=== PATIENT | male | born 1965 | race African-American/Black ===

== ENCOUNTER 2023-08-18 17:17 | Emergency (ER) | payer OTHER ==
--- NOTE | 2023-08-18 18:04 | RAD REPORT ---
EXAM DESCRIPTION: CT - CTFB CLINICAL HISTORY: hit by baseball COMPARISON: No comparisons TECHNIQUE: Axial 2 mm thick images of the face were obtained with sagittal and coronal reconstructio n images. All CT scans are performed using dose optimization technique as appropriate and may include automated exposure control or mA/KV adjustment according to patient size. FINDINGS: No acute facial bone fracture is seen.The mandible is intact. The globes and orbital contents are grossly unremarkable.Mucous retention cyst in left maxillary sinu s. Right cheek swelling. IMPRESSION: Negative for facial bone fracture.
[2023-08-18] MEDS ORDERED: LIDOCAINE 1% MPF 5 ML VIAL ONE (18:16)
--- NOTE | 2023-08-18 19:57 | EDPHYS ---
Physician Documentation [facility] Name: Blake Barba Age: 58 yrs Sex: Male : 1965 Arrival Date: 08/18/2023 Time: 17:17 Bed 9 Private MD: ED Physician Lior Boateng HPI: 08/17 17:30 This 58 yrs old Black Male presents to ER via Law [employer] with complaints of cp Laceration. 17:30 The patient or guardian reports injury, a laceration, swelling, tenderness. cp 17:30 The complaints affect the right cheek. Context of injury: resulted from a direct blow, cp from baseball that bounced off ground. Onset: The symptoms/episode began/occurred today. Associated signs and symptoms: Loss of consciousness: This patient did not experience any loss of consciousness. Pertinent negatives: double vision, headache, neck pain, vomiting. Historical: - Allergies: 17:21 No Known Allergies; hb - Home Meds: 17:21 unknown hypertension med [Active]; hb - PMHx: 17:21 Hypertension; hb - PSHx: 17:21 Appendectomy; hb - Immunization history:: Last tetanus immunization: < 10 years ago. - Infectious Disease History:: Denies. - Social history:: Smoking status: Patient denies any tobacco usage or history of. ROS: 17:35 Skin: Positive for laceration(s), of the right cheek, cp 17:35 Eyes: Negative for injury, pain, redness, and discharge, cp 17:35 Constitutional: Negative for chills, fever, 17:35 Neck: Negative for pain with movement, pain at rest, stiffness, 17:35 Cardiovascular: Negative for chest pain, 17:35 Respiratory: Negative for cough, shortness of breath, wheezing, 17:35 Abdomen/GI: Negative for abdominal pain, diarrhea, constipation, 17:35 Neuro: Negative for altered mental status, dizziness, headache, loss of consciousness, numbness, weakness, 17:35 All other systems are negative, Exam: 17:40 Constitutional: The patient appears in no acute distress, alert, awake, cp non-diaphoretic, well developed, well nourished, 17:40 Head/face: Noted is a laceration(s), that is linear, of the right cheek, swelling, cp that is mild, of the right cheek, Sinus tenderness, that is mild, is located over the right maxillary sinus, 17:40 Eyes: Pupils: equal, round, and reactive to light and accomodation, Extraocular movements: intact throughout, Conjunctiva: normal, no exudate, no injection, Sclera: no appreciated abnormality, Lids and lashes: appear normal, bilaterally, 17:40 ENT: External ear(s): are unremarkable, Nose: is normal, Mouth: Lips: moist, Oral mucosa: pink and intact, moist, Posterior pharynx: is normal, airway is patent, no erythema, no exudate, 17:40 Neck: C-spine: vertebral tenderness, is not appreciated, crepitus, is not appreciated, ROM/movement: is normal, is supple, without pain, no range of motions limitations, no nuchal rigidity, 17:40 Chest/axilla: Inspection: normal, Palpation: is normal, no crepitus, no tenderness, 17:40 Cardiovascular: Rate: normal, Rhythm: regular, 17:40 Respiratory: the patient does not display signs of respiratory distress, Respirations: normal, no use of accessory muscles, no retractions, labored breathing, is not present, Breath sounds: are clear throughout, no decreased breath sounds, no stridor, no wheezing, 17:40 Abdomen/GI: Inspection: abdomen appears normal, Palpation: abdomen is soft and non-tender, in all quadrants, 17:40 Back: pain, is absent, ROM is normal, 17:40 Neuro: Orientation: to person, place \T\ time. Mentation: is normal, Motor: moves all fours, strength is normal, Sensation: is normal, Vital Signs: 17:19 BP 153 / ???; Pulse 98; Resp 60; Temp 97.8(TE); Pulse Ox 100% on R/A; Weight 63.5 kg; hb Height 5 ft. 9 in. ; Pain 6/10; 19:14 BP 141 / 93; Pulse 60; Resp 16; Temp 97.8; Pulse Ox 100% ; Pain 4/10; bm8 20:19 BP 156 / 88; Pulse 56; Resp 16; Pulse Ox 100% on R/A; km8 17:19 Body Mass Index 20.67 (63.50 kg, 175.26 cm) hb 17:19 Pain Scale: Adult hb 19:14 Pain Scale: Adult bm8 Jonny Coma Score: 17:30 Eye Response: spontaneous(4). Motor Response: obeys commands(6). Verbal Response: cp oriented(5). Total: 15. Laceration: 20:00 Wound Repair of 3cm ( 1.2in ) subcutaneous laceration to right cheek. Linear shaped.. cp Minimal bleeding noted.. Distal neuro/vascular/tendon intact. Anesthesia: Wound infiltrated with 5 mls of 1% lidocaine. Wound prep: Simple cleansing by me. Skin closed with 4 5-0 Prolene using interrupted sutures and sterile technique. Dressed with Bacitracin. Patient tolerated well. MDM: 17:18 Patient medically screened. cp 19:56 Differential diagnosis: Contusion of face, Hematoma on face, Laceration of face, cp Concussion without LOC. 19:56 Data reviewed: vital signs, nurses notes, radiologic studies, CT scan, and as a result, cp I will discharge patient. I considered the following discharge prescriptions or medication management in the emergency department Medications were administered in the Emergency Department. See MAR. Counseling: I had a detailed discussion with the patient and/or guardian regarding the historical points, exam findings, and any diagnostic results supporting the discharge/admit diagnosis, radiology results, the need for outpatient follow up, a family practitioner, to return to the emergency department if symptoms worsen or persist or if there are any questions or concerns that arise at home. Response to treatment: the patient's symptoms have markedly improved after treatment, and as a result, I will discharge patient. 08/17 17:28 Order name: CT Facial Bones W/O Con; Complete Time: 18:17 cp 08/17 18:17 Interpretation: Report reviewed. cp 08/17 18:09 Order name: Dressing - Wound; Complete Time: 18:17 cp 08/17 18:09 Order name: Gloves, Sterile; Complete Time: 18:17 cp 08/17 18:09 Order name: Setup Suture Tray; Complete Time: 18:17 cp 08/17 19:50 Order name: Wound dressing; Complete Time: 20:20 cp Administered Medications: 19:34 Drug: Lidocaine Infiltration (1 %) 5 ml 5 ml Infiltration once; to bedside {Note: bm8 administered by provider.} Volume: 5 ml; Route: Infiltration; Disposition Summary: 08/18/23 19:57 Discharge Ordered Notes: Location: Home cp Problem: new cp Symptoms: have improved cp Condition: Stable cp Diagnosis - Facial Laceration/ Laceration without foreign body of cheek and temporomandibular cp area - right - Contusion of unspecified part of head, initial encounter cp Followup: cp - With: Private Physician - When: 1 week - Reason: Staple/Suture removal Discharge Instructions: - Discharge Summary Sheet cp - Facial or Scalp Contusion cp - Sutured Wound Care cp Forms: - Medication Reconciliation Form cp - Thank You Letter cp - Antibiotic Education cp - Prescription Opioid Use cp - Patient Portal Instructions cp - Leadership Thank You Letter cp Prescriptions: - Cephalexin 500 mg Oral Capsule - take 1 capsule ORAL route every 8 hours for 10 days; 30 capsule; Refills: 0, cp Product Selection Permitted Signatures: Dispatcher [employer] EDMS Lior Pena PA PA cp Jacqueline Catherine, RN RN hb Dg Swanson RN RN bm8 Corrections: (The following items were deleted from the chart) 17:22 17:21 Home Meds: Hypertension; hb hb
--- NOTE | 2023-08-18 19:57 | ER ---
Nurse's Notes [facility] Name: Blake Barba Age: 58 yrs Sex: Male : 1965 Arrival Date: 08/18/2023 Time: 17:17 Bed 9 Private MD: Diagnosis: Facial Laceration/ Laceration without foreign body of cheek and temporomandibular area-right;Contusion of unspecified part of head, initial encounter Presentation: 08/17 17:19 Chief complaint: Laceration to right cheek, reports baseball bounced up and hit face. hb Denies other injuries. Bleeding controlled. Coronavirus screen: At this time, the client does not indicate any symptoms associated with coronavirus-19. Ebola Screen: No symptoms or risks identified at this time. Complicating Factors: There are no complicating factors for this patient. Initial Sepsis Screen: Does the patient meet any 2 criteria? No. Patient's initial sepsis screen is negative. Does the patient have a suspected source of infection? No. Patient's initial sepsis screen is negative. Risk Assessment: Do you want to hurt yourself or someone else? Patient reports no desire to harm self or others. Onset of symptoms was August 18, 2023. 17:19 Method Of Arrival: [employer] Enforcement: [place] [employer] hb 17:19 Acuity: RAKAN 4 hb 17:23 Transition of care: TDC. hb 17:24 Note TDC officers at bedside, pt remains restrained. Care prior to arrival:. hb Triage Assessment: 17:21 General: Appears in no apparent distress. Behavior is calm, cooperative. Pain: Pain hb currently is 6 out of 10 on a pain scale. Neuro: Level of Consciousness is awake, alert, obeys commands, Oriented to person, place, time, situation. Injury Description: Laceration sustained to right cheek is 2.6 to 7.5 cm long, was sustained 2-4 hours ago. is bleeding a small amount a dressing was applied. Historical: - Allergies: 17:21 No Known Allergies; hb - Home Meds: 17:21 unknown hypertension med [Active]; hb - PMHx: 17:21 Hypertension; hb - PSHx: 17:21 Appendectomy; hb - Immunization history:: Last tetanus immunization: < 10 years ago. - Infectious Disease History:: Denies. - Social history:: Smoking status: Patient denies any tobacco usage or history of. Screenin:32 [facility] ED Fall Risk Assessment (Adult) History of falling in the last 3 months, tl4 including since admission No falls in past 3 months (0 pts) Confusion or Disorientation No (0 pts) Intoxicated or Sedated No (0 pts) Impaired Gait No (0 pts) Mobility Assist Device Used No (0 pt) Altered Elimination No (0 pt) Score/Fall Risk Level 0 - 2 = Low Risk Oriented to surroundings, Maintained a safe environment, Educated pt \T\ family on fall prevention, incl call for assistance when getting out of bed, Assessed \T\ reinforced patient's understanding of fall precautions, Hourly rounding (assess needs \T\ fall precautionary measures) done, Used ambulatory aids as needed (educated on \T\ assisted with), Used gait belt as appropriate. Abuse screen: Denies threats or abuse. Denies injuries from another. Nutritional screening: No deficits noted. Tuberculosis screening: No symptoms or risk factors identified. Assessment: 17:30 General: Appears in no apparent distress. Behavior is calm, cooperative. Pain: tl4 Complains of pain in face. Neuro: Level of Consciousness is awake, alert, obeys commands, Oriented to person, place, time, situation, Moves all extremities. Gait is steady, Speech is normal. Cardiovascular: Capillary refill < 3 seconds Patient's skin is warm and dry. Respiratory: Airway is patent Respiratory effort is even, unlabored, Respiratory pattern is regular, symmetrical, Breath sounds are clear bilaterally. GI: No deficits noted. No signs and/or symptoms were reported involving the gastrointestinal system. : No deficits noted. No signs and/or symptoms were reported regarding the genitourinary system. EENT: No deficits noted. No signs and/or symptoms were reported regarding the EENT system. Derm: No deficits noted. No signs and/or symptoms reported regarding the dermatologic system. Musculoskeletal: laceration to right cheek. Injury Description: Laceration sustained to right cheek is clean, not bleeding. 18:49 Reassessment: No changes from previously documented assessment. Patient and/or family tl4 updated on plan of care and expected duration. Pain level reassessed. Patient is alert, oriented x 3, equal unlabored respirations, skin warm/dry/pink. 19:14 Reassessment: Patient appears in no apparent distress at this time. Patient and/or bm8 family updated on plan of care and expected duration. Pain level reassessed. Patient is alert, oriented x 3, equal unlabored respirations, skin warm/dry/pink. Injury Description: Laceration sustained to right cheek is clean, 2.6 to 7.5 cm long, not bleeding. 20:19 Reassessment: Patient appears in no apparent distress at this time. No changes from km8 previously documented assessment. Patient and/or family updated on plan of care and expected duration. Pain level reassessed. Patient is alert, oriented x 3, equal unlabored respirations, skin warm/dry/pink. band aid applied over sutures. Vital Signs: 17:19 BP 153 / ???; Pulse 98; Resp 60; Temp 97.8(TE); Pulse Ox 100% on R/A; Weight 63.5 kg; hb Height 5 ft. 9 in. ; Pain 6/10; 19:14 BP 141 / 93; Pulse 60; Resp 16; Temp 97.8; Pulse Ox 100% ; Pain 4/10; bm8 20:19 BP 156 / 88; Pulse 56; Resp 16; Pulse Ox 100% on R/A; km8 17:19 Body Mass Index 20.67 (63.50 kg, 175.26 cm) hb 17:19 Pain Scale: Adult hb 19:14 Pain Scale: Adult bm8 Jonny Coma Score: 17:30 Eye Response: spontaneous(4). Motor Response: obeys commands(6). Verbal Response: cp oriented(5). Total: 15. ED Course: 17:18 Patient arrived in ED. hb 17:18 Brian Jiménez, RN is Primary Nurse. tl4 17:18 Lior Pena PA is PHCP. cp 17:18 Lior Boateng MD is Attending Physician. cp 17:21 Triage completed. hb 17:21 Client placed on continuous cardiac and pulse oximetry monitoring. NIBP monitoring hb applied. Pulse ox on. NIBP on. 17:23 Arm band placed on. hb 17:25 Security at bedside. hb 17:32 Provided Education on: ED process. Moved to private room. tl4 17:55 CT Facial Bones W/O Con In Process Unspecified. EDMS 18:49 Assist provider with laceration repair Set up tray. Performed by Lior BRAVO. Patient tl4 did not have IV access during this emergency room visit. 19:14 Report received from kadie nichols. bm8 Administered Medications: 19:34 Drug: Lidocaine Infiltration (1 %) 5 ml 5 ml Infiltration once; to bedside {Note: bm8 administered by provider.} Volume: 5 ml; Route: Infiltration; Medication: 18:49 VIS not applicable for this client. tl4 Outcome: 19:57 Discharge ordered by MD. hernández 20:19 Patient left the ED. km8 20:20 Discharged to Law Enforcement km8 20:20 Condition: good 20:20 Discharge instructions given to patient, correction officers Instructed on discharge instructions, follow up and referral plans. medication usage, wound care, Demonstrated understanding of instructions, follow-up care, medications, wound care, Prescriptions given X 1, Signatures: Dispatcher [employer] EDMS Lior Pena PA PA cp Baxter, Heather RN RN hb Missy Tam RN RN km8 Brian Jiménez RN RN tl4 Dg Swanson RN RN bm8 Corrections: (The following items were deleted from the chart) 17:22 17:21 Home Meds: Hypertension; hb hb
[2023-08-19 02:40] VITALS: BP 141/93; TEMP 97.8; O2SAT 100
== END 2023-08-18 20:19 | disposition home or self-care (01) ==
LOC: ER 17:17
PROC: 0HQ1XZZ Repair Face Skin, External Approach (ICD-10-PCS; principal; 2023-08-18)
DX: S01.411A Laceration without foreign body of right cheek and temporomandibular area, initial encounter (principal); I10 Essential (primary) hypertension
CPT/HCPCS: 70486; 76377; 99284; 12013; J2001